=== PATIENT | female | born 1965 | race Caucasian/White ===

== ENCOUNTER 2018-10-17 15:51 | Emergency (ER) | payer MEDICAID ==
[2018-10-17 15:52] VITALS: BMI 26.4
[2018-10-17 15:58] VITALS: TEMP 97.8
[2018-10-17] MEDS ORDERED: Sodium Chloride 0.9% 1,000 ML IV STA (16:09)
[2018-10-17 16:28] LABS: URINE APPEARANCE CLEAR (CLEAR); URINE BILIRUBIN NEGATIVE (NEGATIVE); URINE BLOOD TRACE-LYSED (NEGATIVE); URINE COLOR YELLOW (YELLOW); URINE GLUCOSE (UA) NEGATIVE (NEGATIVE); URINE LEUKOCYTE ESTERASE NEGATIVE Leu/uL (NEGATIVE); URINE PROTEIN NEGATIVE mg/dL (<30 mg/dL); URINE UROBILINOGEN 0.2 E.U./dL (<1 E.U./dL)
[2018-10-17 16:30] LABS: URINE BACTERIA FEW /hpf
[2018-10-17 16:46] LABS: BASO # 0.04 K/mm3 (0.0-2.0); BASO % 0.7 % (0.0-3.0); EOS # 0.3 (0.0-0.7); EOS % 4.2 % (1.5-5.0); HEMOGLOBIN 12.3 g/dL (12.0-16.0); LYMPH # 2.4 (1.2-3.4); LYMPH % 38.7 % (22.0-35.0); MEAN CELL VOLUME 90.7 fl (80.0-105.0); MEAN CORPUSCULAR HEMOGLOBIN 28.5 pg (25.0-35.0); MEAN CORPUSCULAR HGB CONC 31.4 g/dl (31.0-37.0); MEAN PLATELET VOLUME 11.7 fl (7.0-11.0); MONO # 0.5 (0.1-0.6); RBC 4.32 10^6/uL (3.5-6.1); RED CELL DISTRIBUTION WIDTH 13.1 % (11.5-14.5); WHITE BLOOD COUNT 6.1 10^3/uL (4.5-11.0)
[2018-10-17] MEDS ORDERED: Sodium Chloride 0.9% 1,000 ML IV ONE (16:46)
[2018-10-17 16:53] LABS: ALBUMIN 3.8 g/dL (3.0-4.8); ALT/SGPT 40 U/L (7-56); AST/SGOT 33 U/L (14-36); BLOOD UREA NITROGEN 13 mg/dL (7-21); GFR NON-AFRICAN AMERICAN > 60; LIPASE 102 U/L (23-300)
--- NOTE | 2018-10-17 17:57 | CT ---
Date of service: 10/17/2018 PROCEDURE: CT Abdomen and Pelvis without intravenous contrast HISTORY: b/l flank pain with dysuria COMPARISON: None. TECHNIQUE: Technique. Contrast dose: Radiation dose: Total exam DLP = 638.4 mGy-cm. This CT exam was performed using one or more of the following dose reduction techniques: Automated exposure control, adjustment of the mA and/or kV according to patient size, and/or use of iterative reconstruction technique. FINDINGS: LOWER THORAX: Unremarkable. LIVER: Unremarkable. No gross lesion or ductal dilatation. GALLBLADDER AND BILE DUCTS: Unremarkable. PANCREAS: Unremarkable. No gross lesion or ductal dilatation. SPLEEN: Unremarkable. ADRENALS: Unremarkable. No mass. KIDNEYS AND URETERS: Unremarkable. No hydronephrosis. No solid mass. VASCULATURE: Unremarkable. No aortic aneurysm. No aortic atherosclerotic calcification or mural plaque present. BOWEL: Unremarkable. No obstruction. No gross mural thickening. APPENDIX: Unremarkable. Normal appendix. PERITONEUM: Unremarkable. No free fluid. No free air. LYMPH NODES: Unremarkable. No enlarged lymph nodes. BLADDER: Unremarkable. REPRODUCTIVE: Unremarkable. BONES: No acute fracture. OTHER FINDINGS: None. IMPRESSION: No acute findings
--- NOTE | 2018-10-17 18:24 | ED PDOC ---
Arrival/HPI - General Chief Complaint: Abdominal Pain Historian: Patient - History of Present Illness Narrative History of Present Illness (Text): 10/17/18 18:25 A 53 year old female, whose past medical history includes hepatitis C and gastritis, presents to the emergency department complaining of bilateral flank pain for the past 3 days. Patient reports also experiencing dysuria. Patient denies any vomiting, any appetite changes, hematuria, vaginal bl eeding/discharge, or any other complaints at this time. PMD: Dr. Cheri Lorenz Past Medical History - Provider Review Nursing Documentation Reviewed: Yes - Tetanus Immunization Tetanus Immunization: Unknown - Reproductive Menopause: Yes - Hematological/Oncological Hx Hepatitis C: Yes - Musculoskeletal/Rheumatological Hx Back Pain: Yes - Gastrointestinal Hx Gastritis: Yes - Psychiatric Hx Depression: No Hx Emotional Abuse: No Hx Physical Abuse: No Hx Substance Use: No - Past Surgical History Past Surgical History: No Previous - Suicidal Assessment Feels Threatened In Home Enviroment: No Family/Social History - Physician Review Nursing Documentation Reviewed: Yes Family/Social History: No Known Family HX Smoking Status: Never Smoked Hx Alcohol Use: No Hx Substance Use: No Hx Substance Use Treatment: No Allergies/Home Meds Allergies/Adverse Reactions: Allergies No Known Allergies Allergy (Verified 02/02/13 14:08) Home Medications: Home Meds Medication Instructions Recorded Confirmed Omeprazole 20 mg PO DAILY 02/02/13 02/02/13 Sucralfate [Carafate] 1 gm PO BID 02/02/13 02/02/13 Review of Systems - Physician Review All systems were reviewed & negative as marked: Yes - Review of Systems Gastrointestinal: absent: Appetite Changes Genitourinary Female: Dysuria. absent: Hematuria, Vaginal Bleeding, Vaginal Discharge Musculoskeletal: Other (bilateral flank pain) Physical Exam Vital Signs Reviewed: Yes Vital Signs Temp Pulse Resp BP Pulse Ox 10/17/18 17:57 79 18 99/60 L 10/17/18 15:52 97.8 F 80 16 115/75 98 Temperature: Afebrile Blood Pressure: Normal Pulse: Regular Respiratory Rate: Normal Appearance: Positive for: Well-Appearing, Non-Toxic, Comfortable Pain Distress: None Mental Status: Positive for: Alert and Oriented X 3 - Systems Exam Head: Present: Atraumatic, Normocephalic Pupils: Present: PERRL Extroacular Muscles: Present: EOMI Conjunctiva: Present: Normal Mouth: Present: Moist Mucous Membranes Neck: Present: Normal Range of Motion Respiratory/Chest: Present: Clear to Auscultation, Good Air Exchange. No: Respiratory Distress, Accessory Muscle Use Cardiovascular: Present: Regular Rate and Rhythm, Normal S1, S2. No: Murmurs Abdomen: No: Tenderness, Distention, Peritoneal Signs Back: Present: CVA Tenderness (bilaterally) Upper Extremity: Present: Normal Inspection. No: Cyanosis, Edema Lower Extremity: Present: Normal Inspection. No: Edema Neurological: Present: GCS=15, CN II-XII Intact, Speech Normal Skin: Present: Warm, Dry, Normal Color. No: Rashes Psychiatric: Present: Alert, Oriented x 3, Normal Insight, Normal Concentration Medical Decision Making ED Course and Treatment: 10/17/18 18:24 Impression: 53 year old female with bilateral flank pain and dysuria. Physical exam shows bilateral CVA tenderness; no other acute findings on examination. Plan: -- Abd/Pelvis CT -- Toradol -- Zofran -- IV Fluids -- Urine Culture -- Labs -- Urinalysis -- Reassess and disposition Progress Notes: 10/17/2018 18:25 Abd/Pelvis CT IMPRESSION: No acute findings. Dictator: Gavino Rao MD - Lab Interpretations Lab Results: Total Bilirubin 0.3 mg/dL (0.2-1.3) 10/17/18 16:35 AST 33 U/L (14-36) 10/17/18 16:35 ALT 40 U/L (7-56) 10/17/18 16:35 Alkaline Phosphatase 82 U/L (38-126) 10/17/18 16:35 Total Protein 7.7 g/dL (5.8-8.3) 10/17/18 16:35 Albumin 3.8 g/dL (3.0-4.8) 10/17/18 16:35 Globulin 3.9 gm/dL 10/17/18 16:35 Albumin/Globulin Ratio 1.0 (1.1-1.8) L 10/17/18 16:35 Lipase 102 U/L (23-300) 10/17/18 16:35 Urine Color Yellow (YELLOW) 10/17/18 16:00 Urine Appearance Clear (CLEAR) 10/17/18 16:00 Urine pH 6.0 (4.7-8.0) 10/17/18 16:00 Ur Specific [place] >= 1.030 (1.005-1.035) 10/17/18 16:00 Urine Protein Negative mg/dL (<30 mg/dL) 10/17/18 16:00 Urine Glucose (UA) Negative mg/dL (NEGATIVE) 10/17/18 16:00 Urine Ketones Negative mg/dL (NEGATIVE) 10/17/18 16:00 Urine Blood Trace-lysed (NEGATIVE) H 10/17/18 16:00 Urine Nitrate Negative (NEGATIVE) 10/17/18 16:00 Urine Bilirubin Negative (NEGATIVE) 10/17/18 16:00 Urine Urobilinogen 0.2 E.U./dL (<1 E.U./dL) 10/17/18 16:00 Ur Leukocyte Esterase Negative Uday/uL (NEGATIVE) 10/17/18 16:00 Urine RBC 1 - 3 /hpf (0-2) H 10/17/18 16:00 Urine WBC 1 - 3 /hpf (0-6) 10/17/18 16:00 Ur Epithelial Cells 4 - 5 /hpf (0-5) 10/17/18 16:00 Urine Bacteria Few /hpf (NONE) 10/17/18 16:00 I have reviewed the lab results: Yes - RAD Interpretation Radiology Orders: 10/17/18 16:46 ABD & PELVIS W/O PO OR IV CONT [CT] Stat - Medication Orders Current Medication Orders: Sodium Chloride (Sodium Chloride 0.9%) 1,000 mls @ 250 mls/hr IV .Q4H STA Stop: 10/17/18 20:08 Last Admin: 10/17/18 16:46 Dose: 250 mls/hr eMAR Start Stop Document 10/17/18 16:46 CD (Rec: 10/17/18 16:46 CD [id number] Intravenous Solution Start Date 10/17/18 Start Time 16:46 End Date 10/17/18 End time 20:46 Total Infusion Time 240 Discontinued Medications Ketorolac Tromethamine (Toradol) 30 mg IVP STAT STA Stop: 10/17/18 16:10 Last Admin: 10/17/18 16:46 Dose: 30 mg MAR Pain Assessment Document 10/17/18 16:46 CD (Rec: 10/17/18 16:47 CD [id number] Pain Reassessment Is this a pain reassessment? No Sleep Is patient sleeping during reassessment? No Presence of Pain Presence of Pain Yes Pain Scale Used Protocol: PSCALES Pain Scale Used Numeric Location Left, Right or Bilateral Right Pain Location Body Site Back Description Intensity of Pain at present 7 Pain Behavior Moaning Irritability IVP Administration Document 10/17/18 16:46 CD (Rec: 10/17/18 16:47 CD [id number] Charges for Administration # of IVP Administrations 1 Ondansetron HCl (Zofran Inj) 4 mg IVP STAT STA Stop: 10/17/18 16:47 Last Admin: 10/17/18 17:08 Dose: 4 mg IVP Administration Document 10/17/18 17:08 CD (Rec: 10/17/18 17:08 CD [id number] Charges for Administration # of IVP Administrations 1 - Scribe Statement The provider has reviewed the documentation as recorded by the Chaitanyaibfeliz Andrews Provider Scribe Attestation: All medical record entries made by the Scribe were at my direction and personally dictated by me. I have reviewed the chart and agree that the record accurately reflects my personal performance of the history, physical exam, medical decision making, and the department course for this patient. I have also personally directed, reviewed, and agree with the discharge instructions and disposition. Disposition/Present on Arrival - Present on Arrival Any Indicators Present on Arrival: No History of DVT/PE: No History of Uncontrolled Diabetes: No Urinary Catheter: No History of Decub. Ulcer: No History Surgical Site Infection Following: None - Disposition Have Diagnosis and Disposition been Completed?: Yes Diagnosis: UTI (urinary tract infection) Disposition: HOME/ ROUTINE Disposition Time: 18:00 Condition: IMPROVED Discharge Instructions (ExitCare): Urinary Tract Infection, Adult (DC) Additional Instructions: LORENA CASTILLO, thank you for letting us take care of you today. The emergency medical care you received today was directed at your acute symptoms. If you were prescribed any medication, please fill it and take as directed. It may take several days for your symptoms to resolve. Return to the Emergency Department if your symptoms worsen, do not improve, or if you have any other problems. Please contact your doctor or call one of the physicians/clinics you have been referred to that are listed on the Patient Visit Information form that is included in your discharge packet. Bring any paperwork you were given at discharge with you along with any medications you are taking to your follow up visit. Our treatment cannot replace ongoing medical care by a primary care pr ovider outside of the emergency department. Thank you for allowing the [facility] team to be part of your care today. You had a urine culture: It will take several days for the results, if any change in treatment is needed we will contact you. Follow up with your primary care doctor in 3-5 days for re-evaluation and further management. Prescriptions: Ibuprofen [Motrin] 600 mg PO Q6 PRN #20 tab PRN Reason: Pain, Moderate (4-7) Sulfamethoxazole/Trimethoprim [Bactrim DS 800 mg-160 mg] 1 tab PO BID #10 tab Referrals: Cheri Lorenz MD [Family Provider] - Follow up with primary Forms: [employer] (Vietnamese)
[2018-10-17 18:26] VITALS: BP 119/77; PULSE 74; RESP 17; O2SAT 99
== END 2018-10-17 18:26 | disposition home or self-care (01) ==
LOC: ED 15:51
DX: N39.0 Urinary tract infection, site not specified (principal); B19.20 Unspecified viral hepatitis C without hepatic coma
CPT/HCPCS: 74176; 80053; 81001; 81025; 83690; 83735; 85025; 87086; 96361; 96374; 96375; 99283; J1885; J2405; J7030